=== PATIENT | female | born 1960 | race Caucasian/White ===

== ENCOUNTER → 2016-10-19 | Outpatient (CLI) | payer OTHER ==
[~2016-10-19] MED LIST: CRESTOR10 MG PO; CYANOCOBAL1000 MCG/M IM; FLAGYL500 MG PO; LORTAB 5/500 501 TAB PO; PEPTO BISMOL262 MG PO; PHENERGAN 25MG.25 M1 PO; PRILOSEC20 MG PO; TETRACYCLINE500 MG PO; VITAMIN D31000 IU PO
--- NOTE | 2016-10-20 09:46 | RADIOLOGY REPORT PS360 ---
MRI-BRAIN W/WO ORDERING PHYSICIAN : JACQUELINE GOULD APRN PATIENT AGE: 56 years GENDER: Female INDICATION: INVOLUNTARY MOVEMENTS, MEMORY LOSS, UNSTEADY GAIT Memory loss and bowel injury movements. Falls. Cannot find words. Anxious. increasing symptoms 5 months. Subtle changes in mental status & function TECHNIQUE: : Precontrast Multiplanar FLAIR, T1, T2 weighted images along with axial diffusion/ADC imaging performed on 1.5 T. Siemens, MRI. Postcontrast imaging [id number] ProHance T1-weighted images axial & coronal plane performed COMPARISON: None FINDINGS No mass lesions. No abnormal areas of enhancement post contrast. The sensitive FLAIR images do show scattered small to moderate size high signal foci in the in the periventricular deep white matter regions cerebral hemispheres bilaterally. . In this age patient these are more likely manifestation of small vessel ischemic gliotic foci, particularly if patient has vascular risk factors such as hypertension, smoking, diabetes, vasculitis etc. I would note that these Microangiopathic microvascular ischemic changes are slightly advanced for age in this 56-year-old patient.. (Other entities in the deep white matter foci unlikely :: The Distribution pattern & lack of enhancement strongly speak against other disseminated disease . Initial diagnosis of demyelinating disease with onset unlikely at this this age as well.) . No territorial infarct is seen. No acute infarct evident on diffusion images. No subdural collection Slightly generous perivascular spaces superiorly as well as floor basal ganglia may reflect likely underlying hypertension Posterior fossa appear satisfactory. Cerebellar hemispheres appear normal. Justine brainstem appears satisfactory. Cranial cervical junction normal. CP angles clear. IACs overall WNL. No nodule nor mass seen along either seventh or eighth nerve. Upper normal enhancement at the left IAC but no discrete nodule. . Ventricles appear normal as do basal cisterns. Survey imaging of [place] of [place] unremarkable. Sella normal size, unremarkable. The visualized paranasal sinuses are clear. Orbits satisfactory.. Mastoid air cells. Opacified air cells at throughout right mastoid tip, most likely reflecting incidental mastoid effusion. Warrants clinical correlation . IMPRESSION: --------- 1. High signal foci scattered throughout deep white matter of cerebral hemispheres. 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 . Are there vascular risk factors to support? Clinical correlation required. 2. No acute or recent infarct evident on diffusion images. No territorial infarct. No mass lesion. & No abnormal areas of enhancement on Postcontrast images
== END ==
LOC: RT 10:00
DX: I51.9 Heart disease, unspecified (principal); D50.9 Iron deficiency anemia, unspecified; E53.8 Deficiency of other specified B group vitamins
CPT/HCPCS: A9576